=== PATIENT | male | born 1990 | race Hispanic/Latino ===

== ENCOUNTER 2020-09-09 17:24 | Emergency (ER) | payer OTHER, SELFPAY ==
--- NOTE | 2020-09-09 17:44 | ED.GENADULT ---
HPI - General Adult General Chief complaint: Headache <Maggie Langley PA-C - Last Filed: 09/09/20 18:35> Stated complaint: headache <Maggie Langley PA-C - Last Filed: 09/09/20 18:35> Time Seen by Provider: 09/09/20 17:43 <Maggie Langley PA-C - Last Filed: 09/09/20 18:35> Source: patient and interpreter for the deaf (roommate) <Maggie Langley PA-C - Last Filed: 09/09/20 18:35> Mode of arrival: ambulatory <Maggie Langley PA-C - Last Filed: 09/09/20 18:35> Limitations: no limitations <Maggie Langley PA-C - Last Filed: 09/09/20 18:35> History of Present Illness HPI narrative: 30-year-old male here with his friend with whom he lives. They have a prescription for a Covid screen written by his primary care physician. Patient is complaining of a headache for the past 5 days, sometimes worse than others. Treated with Tylenol and Motrin at home with no relief. There are no known sick contacts, patient works outside as a library aide. He denies any fever, cough, body aches. <Maggie Langley PA-C - Last Filed: 09/09/20 18:35> Onset (ago): day(s) <Maggie Langley PA-C - Last Filed: 09/09/20 18:35> Pain Consistency: colicky <LOR Robledo Last Filed: 09/09/20 18:35> Relieving factors: none <Maggie Langley PA-C - Last Filed: 09/09/20 18:35> Exacerbating factors: none <LOR Robldeo Last Filed: 09/09/20 18:35> Treatments prior to arrival: NSAID <LOR Robledo Last Filed: 09/09/20 18:35> Related Data Home medications: Home Medications Medication Instructions Recorded Confirmed No Home Medications 09/09/20 09/09/20 <Maggie Langley PA-C - Last Filed: 09/09/20 18:35> Allergies/adverse reactions: Allergies Allergy/AdvReac Type Severity Reaction Status Date / Time No Known Allergies Allergy Verified 09/09/20 18:06 <Maggie Langley PA-C - Last Filed: 09/09/20 18:35> Review of Systems Review of Systems: All systems reviewed & are unremarkable except as noted in HPI and below <Maggie Langley PA-C - Last Filed: 09/09/20 18:35> [facility] Social History Social History: Social History (Updated 09/09/20 @ 18:06 by Maggie Langley PA-C) Smoking status: Never smoker Alcohol intake: never Living arrangements: with friend(s) Occupation/Education: occupation Additional occupation/education comments: library aide Gender identity (if verbalized by the patient): Male <Maggie Langley PA-C - Last Filed: 09/09/20 18:35> Exam Const: General: no acute distress and alert <Maggie Langley PA-C - Last Filed: 09/09/20 18:35> Orientation/consciousness: patient oriented x3 <Maggie Langley PA-C - Last Filed: 09/09/20 18:35> HENMT: Head: normal to inspection <Maggie Langley PA-C - Last Filed: 09/09/20 18:35> Ears: TM's normal bilaterally <Maggie Langley PA-C - Last Filed: 09/09/20 18:35> Face and sinus: sinus tenderness (mild) frontal <Maggie Langley PA-C - Last Filed: 09/09/20 18:35> Eyes: Conjunctivae: conjunctivae normal <Maggie Langley PA-C - Last Filed: 09/09/20 18:35> Pupils: Equal, round and reactive pupils present <Maggie Langley PA-C - Last Filed: 09/09/20 18:35> EOM: EOMs intact bilaterally <Maggie Langley PA-C - Last Filed: 09/09/20 18:35> Neck: Neck: no lymphadenopathy <LOR Robledo Last Filed: 09/09/20 18:35> Resp: Effort & Inspection: normal respiratory effort <LOR Robledo Last Filed: 09/09/20 18:35> Auscultation: clear to auscultation bilaterally <LOR Robledo Last Filed: 09/09/20 18:35> Cardio: Rate: regular rate <LOR Robledo Last Filed: 09/09/20 18:35> Rhythm: regular rhythm <LOR Robledo Last Filed: 09/09/20 18:35> Back/Spine/Pelvis: Cervical Spine: cervical ROM normal <LOR Robledo Last Filed: 09/09/20 18:35> Skin: General skin exam: normal color <LOR Robledo F
[2020-09-09 18:06] VITALS: BP 128/66; PULSE 64; RESP 16; TEMP 36.6; O2SAT 99
[2020-09-09 18:07] VITALS: BP 128/66; PULSE 64; RESP 16; TEMP 36.5; O2SAT 99
[2020-09-10 12:14] LABS: SARS-CoV-2 RNA PCR Positive
== END 2020-09-09 18:55 | disposition home or self-care (01) ==
PROVIDERS: Physician Assistant; Emergency Provider Emergency Medicine
DX: U07.1 COVID-19 (principal); R51.9 Headache, unspecified
CPT/HCPCS: 87635; 99283; C9803; U0003